=== PATIENT | male | born 1960 | race African-American/Black ===

== ENCOUNTER 2023-11-09 12:43 | Emergency (ER) | payer OTHER ==
[~2023-11-09] VITALS: Ht 182.9 cm; Wt 82.0 kg
[2023-11-09 12:53] VITALS: O2SAT 98
[2023-11-09 13:14] LABS: BASOPHILS % 1.4 % (0.0-2.0); EOSINOPHILS % 1.5 % (0.0-5.0); HEMATOCRIT. 48.3 % (42.0-52.0); HEMOGLOBIN. 16.5 g/dL (14.0-18.0); LYMPHOCYTES % 37.4 % (20.0-50.0); MEAN CORPUSCULAR HGB CONC 34.2 g/dL (31.0-37.0); MEAN CORPUSCULAR VOLUME 90.5 fL (80.0-94.0); NEUTROPHILS % 53.7 % (40.0-76.0); PLATELET 255 x1000/uL (130-400); RED BLOOD CELL COUNT 5.33 mill/uL (4.7-6.1); RED CELL DISTRIBUTION WIDTH 12.8 % (11.6-14.6); WHITE BLOOD COUNT 7.5 x1000/uL (4.5-11.0)
[2023-11-09 13:22] LABS: CLARITY URINE CLEAR (CLEAR); COLOR URINE YELLOW (YELLOW); GLUCOSE URINE 3+ (NEGATIVE); KETONES URINE NEGATIVE (NEGATIVE); LEUKOCYTE ESTERASE URINE NEGATIVE (NEGATIVE); NITRITE URINE NEGATIVE (NEGATIVE); OCCULT BLOOD URINE NEGATIVE (NEGATIVE); PROTEIN URINE NEGATIVE (NEGATIVE); SPECIFIC GRAVITY URINE 1.038 (1.005-1.030); UROBILINOGEN URINE 0.2 E.U./dL (0.2-1.0)
[2023-11-09 13:32] LABS: BACTERIA URINE NONE SEEN; RBC URINE 0-2 /hpf (0-2); SQUAMOUS EPITHELIAL CELL URINE RARE /lpf (RARE/1+); WBC URINE 0-2 /hpf (0-2); YEAST URINE NONE SEEN
[2023-11-09 13:44] LABS: ALANINE AMINOTRANSFERASE 9 IU/L (10-49); ALBUMIN 4.6 g/dL (3.2-4.8); ASPARTATE AMINOTRANSFERASE 12 IU/L (<34); BILIRUBIN TOTAL 0.4 mg/dL (0.1-1.0); CALCIUM 9.3 mg/dL (8.7-10.4); CARBON DIOXIDE 30 mEq/L (21-32); CHLORIDE 96 mEq/L (98-107); CREATININE 1.3 mg/dL (0.6-1.3); POTASSIUM 4.5 mEq/L (3.5-5.1); PROTEIN TOTAL 7.4 g/dL (6.0-8.3); SODIUM 131 mEq/L (136-145); UREA NITROGEN BLOOD 10 mg/dL (9-23)
[2023-11-09 13:47] LABS: GLUCOSE 433 mg/dL (70-105)
[2023-11-09] MEDS ORDERED: CLINDAMYCIN 600 MG in DEXTROSE 5% WATER 50 ML IV ONE (15:30)
[2023-11-09] MEDS: CLINDAMYCIN 600MG PREMIX 50 ML IV NR (16:27)
[2023-11-09] MEDS: SODIUM CHLORIDE 0.9% 1,000 ML IV ONE ×2 (16:27→16:28)
[2023-11-09 19:27] VITALS: BP 132/78; PULSE 76; RESP 16; TEMP 98.7
== END 2023-11-09 18:14 | disposition short-term general hospital (02) ==
LOC: ER 14:28 → CANBEDREQ 16:59 → ER 18:14
DX: E11.621 Type 2 diabetes mellitus with foot ulcer (principal); E11.65 Type 2 diabetes mellitus with hyperglycemia; I10 Essential (primary) hypertension
CPT/HCPCS: 99285; 96365; 80053; 81003; 82962; 85025; 36415; 73660; J3490; J7030; J7060